=== PATIENT | male | born 1945 | race Two or more races ===

== ENCOUNTER 2023-04-05 12:31 | Observation (INO) | payer OTHER ==
[~2023-04-05] VITALS: Ht 175.3 cm; Wt 81.8 kg
[2023-04-05 14:04] LABS: Basophils # (auto) 0 10 ^3/uL (0-0.2); Eosinophils # (auto) 0 10 ^3/uL (0-0.8); Hemoglobin 11.5 g/dL (13.5-17.5); Lymphocytes # (auto) 1.5 10 ^3/uL (0.4-5.4); Monocytes # (auto) 0.8 10 ^3/uL (0-1.3); Nucleated Red Blood Cells % 0.1 %
[2023-04-05 14:06] LABS: Basophils % (auto) 0.5 % (0.0-2.0); Eosinophils % (auto) 0.4 % (0.0-7.0); Lymphocytes % (auto) 18.8 % (10.0-50.0); Mean Corpuscular Hemoglobin 24.6 pg (28.0-32.0); Mean Corpuscular Hgb Conc. 31.9 g/dL (32.0-36.0); Monocytes % (auto) 10.2 % (0.0-12.0); Neutrophils # (auto) 5.6 10 ^3/uL (1.6-8.6); Neutrophils % (auto) 70.1 % (37.0-80.0); Red Blood Cells 4.68 10^6/uL (4.5-5.90); Red Cell Distribution Width 17.8 % (11.8-14.3)
[2023-04-05 14:35] LABS: Albumin 2.9 g/dL (3.4-5.0); Calcium 8.1 mg/dL (8.5-10.1); Potassium 4.1 mmol/L (3.5-5.1)
[2023-04-05 14:37] LABS: BUN/Creatinine Ratio 24.3 (10.0-20.0); Bilirubin, Total 1.2 mg/dL (0.2-1.0); Total Protein 5.8 g/dL (6.4-8.2)
[2023-04-05 14:40] LABS: INR 1.15 (0.9-1.15); Partial Thromboplastin Time 28.5 sec (24.6-33.4)
[2023-04-05] MEDS ORDERED: LIDOCAINE W/ EPINEPHRINE 1% 20ML VIAL SC ONE (14:45)
[2023-04-05 15:12] LABS: Magnesium 1.8 mg/dL (1.6-2.6)
[2023-04-05] MEDS ORDERED: VANCOMYCIN 1GM/250ML 250 ML IV ONE (15:15)
[2023-04-05] MEDS ORDERED: FUROSEMIDE 20 MG/2 ML VIAL IV ONE (15:15)
[2023-04-05] MEDS ORDERED: CEFTRIAXONE SODIUM 2 GM in D5W 5% 100 ML IV ONE (15:15)
[2023-04-05 15:21] LABS: CRP High Sensitivity 1.58 mg/dL (< 0.3)
[2023-04-05] MEDS ORDERED: NITROGLYCERIN 0.4 MG SL TAB SL PRN (18:15)
[2023-04-05] MEDS ORDERED: MORPHINE SULFATE INJ 2 MG/ml SYRG IV PRN (18:15)
[2023-04-05 19:28] LABS: Basophils # (auto) 0 10 ^3/uL (0-0.2); Eosinophils # (auto) 0 10 ^3/uL (0-0.8)
[2023-04-05 19:30] LABS: Basophils % (auto) 0.3 % (0.0-2.0); Eosinophils % (auto) 0.5 % (0.0-7.0); Hematocrit 38.1 % (41.0-53.0); Hemoglobin 11.8 g/dL (13.5-17.5); Lymphocytes # (auto) 1.2 10 ^3/uL (0.4-5.4); Lymphocytes % (auto) 13.9 % (10.0-50.0); Mean Corpuscular Hemoglobin 24.2 pg (28.0-32.0); Mean Corpuscular Volume 78.2 fL (80.0-100.0); Monocytes # (auto) 0.8 10 ^3/uL (0-1.3); Monocytes % (auto) 9.7 % (0.0-12.0); Neutrophils # (auto) 6.3 10 ^3/uL (1.6-8.6); Neutrophils % (auto) 75.6 % (37.0-80.0); Nucleated Red Blood Cells % 0.1 %; Red Blood Cells 4.87 10^6/uL (4.5-5.90); White Blood Cell 8.4 10^3/uL (4.4-10.8)
[2023-04-05] MEDS ORDERED: VANCOMYCIN PER PHARMACY 0 MG IV SCH (19:45)
[2023-04-05 19:53] LABS: BUN/Creatinine Ratio 27.3 (10.0-20.0); Calcium 8.6 mg/dL (8.5-10.1); Potassium 3.6 mmol/L (3.5-5.1)
[2023-04-05] MEDS: VANCOMYCIN 1GM/250ML 250 ML IV SCH (21:28)
[2023-04-05] MEDS ORDERED: INSULIN LANTUS (GLARGINE) 1 /0.01ml (100units/ml) SC SCH (22:00)
[2023-04-05 23:08] LABS: Urine Bacteria NONE SEEN /hpf (None Seen); Urine Blood Negative /uL (Negative); Urine Mucus FEW (None Seen); Urine Specific Gravity 1.044 (1.001-1.035); Urine WBC 1 /hpf (0 - 3)
[2023-04-05] MEDS: PIPERACILLIN-TAZOB 3.375GM 100 ML IV SCH (23:27)
[2023-04-06] MEDS: VANCOMYCIN 1GM/250ML 250 ML IV SCH ×2 (00:01→08:51)
[2023-04-06] MEDS: PIPERACILLIN-TAZOB 3.375GM 100 ML IV SCH ×2 (04:44→11:03)
[2023-04-06] MEDS ORDERED: DEXTROSE (50%) 50ML SYRG IV PRN (05:00)
[2023-04-06 07:58] LABS: Basophils # (auto) 0 10 ^3/uL (0-0.2); Basophils % (auto) 0.2 % (0.0-2.0); Eosinophils # (auto) 0 10 ^3/uL (0-0.8); Eosinophils % (auto) 0.3 % (0.0-7.0); Hematocrit 41.9 % (41.0-53.0); Hemoglobin 12.4 g/dL (13.5-17.5); Lymphocytes # (auto) 1.8 10 ^3/uL (0.4-5.4); Mean Corpuscular Hemoglobin 23.8 pg (28.0-32.0); Mean Corpuscular Hgb Conc. 29.5 g/dL (32.0-36.0); Mean Corpuscular Volume 80.8 fL (80.0-100.0); Monocytes # (auto) 1.1 10 ^3/uL (0-1.3); Monocytes % (auto) 10.4 % (0.0-12.0); Neutrophils # (auto) 7.3 10 ^3/uL (1.6-8.6); Neutrophils % (auto) 71.1 % (37.0-80.0); Nucleated Red Blood Cells % 0.1 %; Red Blood Cells 5.19 10^6/uL (4.5-5.90); Red Cell Distribution Width 18.2 % (11.8-14.3); White Blood Cell 10.3 10^3/uL (4.4-10.8)
[2023-04-06] MEDS ORDERED: ACCU-CHEK COMFORT CURVE STRIP VI SCH ×2 (08:00→11:30)
[2023-04-06] MEDS ORDERED: InsuLIN REG 1unit/0.01ml Soln (100units/ml) SC SCH ×2 (08:00→11:30)
[2023-04-06 08:40] LABS: BUN/Creatinine Ratio 22.7 (10.0-20.0); Potassium 3.8 mmol/L (3.5-5.1)
[2023-04-06] MEDS ORDERED: DEXTROSE (50%) 50ML SYRG IV ONE (10:15)
[2023-04-06] MEDS ORDERED: [UNRECOGNIZED DRUG - CODE] OP (13:41)
[2023-04-06] MEDS ORDERED: TRAM50TA2 PO (13:41)
[2023-04-06] MEDS ORDERED: BACDST PO (13:41)
[2023-04-06] MEDS ORDERED: BLOO1KIT XX (13:45)
[2023-04-06] MEDS ORDERED: BLOO1KIT60 XX (13:45)
[2023-04-06] MEDS ORDERED: METF-370 PO (13:45)
[2023-04-06] MEDS ORDERED: LANC-268 XX (13:45)
[2023-04-06 14:00] VITALS: BP 109/71
== END 2023-04-06 14:49 | disposition home or self-care (01) ==
LOC: ER 12:31 → OVERFLOW 18:06
PROVIDERS: ADMIT Internal Medicine; ATTEND Internal Medicine
DX: L03.115 Cellulitis of right lower limb (principal); L03.116 Cellulitis of left lower limb; E11.65 Type 2 diabetes mellitus with hyperglycemia; R19.7 Diarrhea, unspecified; R10.9 Unspecified abdominal pain; R60.0 Localized edema; I11.0 Hypertensive heart disease with heart failure; I50.9 Heart failure, unspecified; J98.11 Atelectasis; M00.9 Pyogenic arthritis, unspecified; M70.41 Prepatellar bursitis, right knee; Z79.899 Other long term (current) drug therapy
CPT/HCPCS: 36415; 71045; 73560; 73721; 74176; 80048; 80053; 81001; 82962; 83036; 83735; 83880; 84484; 85025; 85610; 85652; 85730; 86141; 86850; 86900; 86901; 87040; 93306; 93970; 96365; 96366; 96367; 96372; 99291; G0378; J0696; J1815; J2543; J3370; J7060